=== PATIENT | female | born 1975 | race Caucasian/White ===

== ENCOUNTER 2018-03-26 16:49 | Emergency (ER) | payer OTHER ==
[~2018-03-26] VITALS: Ht 160 cm; Wt 83.9 kg
[~2018-03-26 16:49] MED LIST: MIRTAZAPINE15 M2 PO; OXYCODONE HCL5 M1 PO; SYMBICORT 16010.2 GM INH; TRAMADOL HCL50 M1 PO; VENLAFAXINE H37.5 M3 PO
[2018-03-26 16:59] VITALS: BP 145/98
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
--- NOTE | 2018-03-26 18:01 | RADIOLOGY REPORT ---
EXAMINATION: XR RIBS, LEFT CLINICAL INFORMATION: Fall with left anterior sixth rib tenderness and eighth rib tenderness. COMPARISON: None TECHNIQUE: 4 radiographs of the left ribs including a PA radiograph of the chest. FINDINGS: Lungs are clear. No consolidation, pneumothorax, or pleural effusion. The cardiomediastinal silhouette and pulmonary vasculature are normal. Subtle left sixth rib fracture anteriorly. No other discrete rib fracture. No fractures are identified. IMPRESSION: Subtle left sixth rib fracture anteriorly. No other discrete rib fracture. No acute cardiopulmonary disease.
[2018-03-26] MEDS ORDERED: PERCOCET 5-3251 EACH PO (18:36)
== END 2018-03-26 18:56 ==
LOC: ERH 16:49
DX: S22.32XA Fracture of one rib, left side, initial encounter for closed fracture (principal); R07.89 Other chest pain; X58.XXXA Exposure to other specified factors, initial encounter; Y92.9 Unspecified place or not applicable; Y93.9 Activity, unspecified
CPT/HCPCS: 71100-LT; 93005; 93010

== ENCOUNTER 2018-06-12 23:38 | Emergency (ER) | payer OTHER ==
[~2018-06-12] VITALS: Ht 160 cm; Wt 86.2 kg
[~2018-06-12 23:38] MED LIST changes: +PERCOCET 5-3251 EACH PO
[2018-06-12 23:59] VITALS: BP 134/87
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
== END 2018-06-13 00:20 ==
LOC: ERH 23:38
DX: L25.9 Unspecified contact dermatitis, unspecified cause (principal); L98.499 Non-pressure chronic ulcer of skin of other sites with unspecified severity